=== PATIENT | male | born 1975 | race Caucasian/White ===

== ENCOUNTER → 2016-03-27 | Outpatient (CLI) | payer BC ==
[2016-03-27 17:31] LABS: HEMATOCRIT 43.2 % (42-52); MEAN CELL VOLUME 94.3 fL (80-100); MEAN CORPUSCULAR HEMOGLOBIN 33.6 pg (25-34); MEAN CORPUSCULAR HGB CONC 35.6 g/dl (32-36); MEAN PLATELET VOLUME 10.7 fL (7.4-10.4); PLATELET COUNT 176 K/uL (130-400); RED BLOOD COUNT 4.58 M/uL (4.7-6.1); WHITE BLOOD COUNT 7.35 K/uL (4.8-10.8)
[2016-03-27 18:08] LABS: ALT/SGPT 25 U/L (12-78); AST/SGOT 18 U/L (15-37); BLOOD UREA NITROGEN 22 mg/dl (7-18); BUN/CREATININE RATIO 18.6 (10-20); CARBON DIOXIDE 32 mmol/L (21-32); CHLORIDE 101 mmol/L (98-107); GLUCOSE 77 mg/dl (70-99); POTASSIUM 3.8 mmol/L (3.5-5.1); SODIUM 142 mmol/L (136-145)
[2016-03-27 18:13] LABS: ALB/GLOB RATIO 1.1 (0.9-2); ALKALINE PHOSPHATASE 61 U/L (45-117); CHOLESTEROL 177 mg/dl (0-200); CHOLESTEROL/HDL RATIO 3.7; HDL CHOLESTEROL 48 mg/dl; LDL CHOLESTEROL CALCULATED 106 mg/dl; PROSTATE SPECIFIC ANTIGEN 0.919 ng/ml (0.000-4.000); TRIGLYCERIDES 116 mg/dl (0-150); VERY LOW DENSITY LIPOPROT CALC 23 mg/dl
[2016-03-28 06:27] LABS: ESTIMATED AVERAGE GLUCOSE 94 mg/dl; HA1C FLAG Normal (Normal)
== END | disposition home or self-care (01) ==
LOC: C.LAB1850 16:44
PROVIDERS: ATTEND Internal Medicine
DX: Z12.5 Encounter for screening for malignant neoplasm of prostate (principal); E78.5 Hyperlipidemia, unspecified; R73.01 Impaired fasting glucose; E55.9 Vitamin D deficiency, unspecified

== ENCOUNTER 2017-07-10 19:24 | Emergency (ER) | payer BC, OTHER ==
[~2017-07-10] VITALS: Ht 180.3 cm; Wt 78.4 kg
[2017-07-10 19:33] VITALS: TEMP 38.1; Ht 180.3 cm; Wt 78.4 kg
[2017-07-10] MEDS ORDERED: SODIUM CHLORIDE 0.9% 1000ML 2,000 ML IV STA (19:42)
[2017-07-10] MEDS ORDERED: ONDANSETRON INJ 2 MG/ML 2 ML VIAL IV STA (19:42)
[2017-07-10] MEDS ORDERED: KETOROLAC TROMETHAMINE 30 MG/ML VIAL IV STA (19:42)
[2017-07-10] MEDS ORDERED: ACETAMINOPHEN 500 MG TAB PO STA (19:42)
--- NOTE | 2017-07-10 19:50 | EMERGENCY ROOM VISIT NOTE ---
History Report prepared by Itz: Nydia Karimi Under the Supervision of: Dr. Dimitrios Lemus M.D. First contact with patient: 19:37 Chief Complaint: FLU LIKE SX Stated Complaint: NAUSEA,VOMITING,FEVER,ACHES,HEADACHE History of Present Illness The patient is a 41 year old male who presents to the Emergency Room with complaints of constant nausea beginning this morning. The patient states he vomited 6 times today and has been unable to keep any food down. He had a normal bowel movement this morning. The patient reports a fever, body aches, and a headache. He denies any sore throat or diarrhea. He notes a recent sick contact with someone who had the flu. The patient reports eating left over chicken last night which tasted normal. The patient states he felt normal yesterday. Source of History: patient Onset: this morning Position: other (generalized) Quality: other (nausea) Timing: constant Associated Symptoms: + fevers, + headache, + nausea, + vomiting, No sorethroat, No diarrhea Review of Systems See HPI for pertinent positives & negatives. A total of 10 systems reviewed and were otherwise negative. Past Medical & Surgical Medical Problems: (1) Palatal myoclonus Surgical Problems: (1) History of tonsillectomy Family History Cancer FH: heart disease FH: hypertension Social History Smoking Status: Never Smoker Smokeless Tobacco Use: No Alcohol Use: occasionally Marital Status: Housing Status: lives with significant other Occupation Status: employed Current/Historical Medications Scheduled Doxycycline (Monohydrate) (Doxycycline), 100 MG PO BID Ondasetron Odt (Zofran Odt), 4-8 MG SL Q6H Scheduled PRN Clonazepam (Klonopin), 0.5-1 MG PO BID PRN for Anxiety Methocarbamol (Robaxin), 500 MG PO BID PRN for Muscle Spasms Allergies Uncoded Allergies: DENIES (Allergy, Unknown, 04/02/02) N (Allergy, Unknown, 04/02/02) NKDA (Allergy, Unknown, 04/02/02) Physical Exam Vital Signs Date Time Temp Pulse Resp B/P (MAP) Pulse Ox O2 Delivery O2 Flow Rate FiO2 07/10/17 21:15 70 18 136/70 99 Room Air 07/10/17 19:33 38.1 99 19 124/80 99 Room Air Physical Exam GENERAL: Patient is in no acute distress. HEENT: No acute trauma, normocephalic atraumatic, mucous membranes moist, no nasal congestion, no scleral icterus. NECK: No stridor, no adenopathy, no meningismus, trachea is midline. LUNGS: Clear to auscultation bilaterally, no wheeze, no rhonchi, breath sounds equal. HEART: Without murmurs gallops or rubs, regular rate and rhythm. ABDOMEN: Midly diffusely tender throughout. Soft, bowel sounds positive, no hernias, no peritonitis. EXTREMITIES: No cyanosis or edema, full range of motion of all the joints without pain or difficulty, no signs for acute trauma. NEUROLOGIC: Oriented x 3, no acute motor or sensory deficits, no focal weakness. SKIN: No rash, no jaundice, no diaphoresis. Medical Decision & Procedures ER Provider Diagnostic Interpretation: Radiology results as stated below per my review and radiologist interpretation: PA CHEST WITH ABDOMINAL SERIES CLINICAL HISTORY: Vomiting. FINDINGS: A PA chest radiograph is obtained. No prior studies are available for comparison at the time of dictation. The cardiomediastinal silhouette is unremarkable. The lungs and pleural spaces are clear. No pneumothorax is seen. The bony thorax is grossly intact. There is mild curvature of the upper thoracic spine. Supine and erect abdominal radiographs are correlated with abdominal ultrasound dated 08/10/2011. There is a nonobstructed abdominal bowel gas pattern. No evidence of intraperitoneal free air is seen. There are no abnormal abdominal calcifications. Numerous phleboliths are seen in the pelvis. The lumbosacral spine and bony pelvis appear intact. IMPRESSION: 1. No active disease in the chest. 2. Nonobstructed abdominal bowel gas pattern. Electronically signed by: Dimitrios Perez M.D. Laboratory Results 07/10/17 19:58 Red Blood Count 5.39, Mean Corpuscular Volume 93.3, Mean Corpuscular Hemoglobin 33.4, Mean Corpuscular Hemoglobin Concent 35.8, Mean Platelet Volume 10.4, Neutrophils (%) (Auto) 90.7, Lymphocytes (%) (Auto) 4.4, Monocytes (%) (Auto) 4.4, Eosinophils (%) (Auto) 0.3, Basophils (%) (Auto) 0.1, Neutrophils # (Auto) 7.04, Lymphocytes # (Auto) 0.34, Monocytes # (Auto) 0.34, Eosinophils # (Auto) 0.02, Basophils # (Auto) 0.01 07/10/17 19:58 Test 07/10/17 19:50 07/10/17 19:58 Urine Color DK YELLOW Urine Appearance CLEAR (CLEAR) Urine pH 5.5 (4.5-7.5) Urine Specific [place] 1.031 (1.000-1.030) Urine Protein TRACE (NEG) Urine Glucose (UA) NEG (NEG) Urine Ketones 3+ (NEG) Urine Occult Blood NEG (NEG) Urine Nitrite NEG (NEG) Urine Bilirubin NEG (NEG) Urine Urobilinogen NEG (NEG) Urine Leukocyte Esterase NEG (NEG) Urine WBC (Auto) 1-5 /hpf (0-5) Urine RBC (Auto) 0-4 /hpf (0-4) Urine Hyaline Casts (Auto) 1-5 /lpf (0-5) Urine Epithelial Cells (Auto) 5-10 /lpf (0-5) Urine Bacteria (Auto) NEG (NEG) White Blood Count 7.76 K/uL (4.8-10.8) Red Blood Count 5.39 M/uL (4.7-6.1) Hemoglobin 18.0 g/dL (14.0-18.0) Hematocrit 50.3 % (42-52) Mean Corpuscular Volume 93.3 fL (80-100) Mean Corpuscular Hemoglobin 33.4 pg (25-34) Mean Corpuscular Hemoglobin Concent 35.8 g/dl (32-36) Platelet Count 144 K/uL (130-400) Mean Platelet Volume 10.4 fL (7.4-10.4) Neutrophils (%) (Auto) 90.7 % Lymphocytes (%) (Auto) 4.4 % Monocytes (%) (Auto) 4.4 % Eosinophils (%) (Auto) 0.3 % Basophils (%) (Auto) 0.1 % Neutrophils # (Auto) 7.04 K/uL (1.4-6.5) Lymphocytes # (Auto) 0.34 K/uL (1.2-3.4) Monocytes # (Auto) 0.34 K/uL (0.11-0.59) Eosinophils # (Auto) 0.02 K/uL (0-0.5) Basophils # (Auto) 0.01 K/uL (0-0.2) RDW Standard Deviation 42.4 fL (36.4-46.3) RDW Coefficient of Variation 12.5 % (11.5-14.5) Immature Granulocyte % (Auto) 0.1 % Immature Granulocyte # (Auto) 0.01 K/uL (0.00-0.02) Anion Gap 6.0 mmol/L (3-11) Est Creatinine Clear Calc Drug Dose 88.3 ml/min Estimated GFR () 89.5 Estimated GFR (Non- 77.2 BUN/Creatinine Ratio 20.5 (10-20) Calcium Level 9.2 mg/dl (8.5-10.1) Magnesium Level 1.9 mg/dl (1.8-2.4) Total Bilirubin 0.9 mg/dl (0.2-1) Aspartate Amino Transf (AST/SGOT) 22 U/L (15-37) Alanine Aminotransferase (ALT/SGPT) 30 U/L (12-78) Alkaline Phosphatase 61 U/L (45-117) Total Protein 8.2 gm/dl (6.4-8.2) Albumin 4.2 gm/dl (3.4-5.0) Globulin 4.0 gm/dl (2.5-4.0) Albumin/Globulin Ratio 1.1 (0.9-2) Lipase 74 U/L (73-393) Laboratory results reviewed by me. Medications Administered Medications (Trade) Dose Ordered Sig/Andrea Route Start Time Stop Time Status Last Admin Dose Admin Ondansetron HCl (Zofran Inj) 4 mg NOW STAT IV 07/10/17 19:42 07/10/17 19:45 DC 07/10/17 20:03 4 MG Ketorolac Tromethamine (Toradol Inj) 15 mg NOW STAT IV 07/10/17 19:42 07/10/17 19:45 DC 07/10/17 20:04 15 MG Sodium Chloride 2,000 ml @ 999 mls/hr Q2H1M STAT IV 07/10/17 19:42 07/10/17 21:42 DC 07/10/17 20:03 999 MLS/HR Ondansetron HCl (ZOFRAN ODT 4MG Home Pack) 1 homepack UD ONCE PO 07/10/17 21:30 07/10/17 21:31 DC 07/10/17 21:46 1 HOMEPACK ED Course 1937: The patient was evaluated in room A2. A complete history and physical exam was performed. 1941: Ordered Sodium Chloride 2000 ml @ 999 mls/hr IV, Acetaminophen 1000 mg PO , Toradol Inj 15 mg IV, Zofran Inj 4 mg IV. 2124: On reassessment, the patient no longer has any nausea. He also does not have any abdominal tenderness. He is feeling much better. 2129: Ordered Ondansetron HCl 1 homepack PO. 2142: Reevaluated the patient. Discussed results and discharge instructions: He verbalized understanding and agreement. The patient is ready for discharge. Medical Decision Differential diagnoses include: dehydration, electrolyte imbalance, bowel obstruction, pneumonia, UTI, biliary colic, appendicitis, pancreatitis. There is no leukocytosis or concerning anemia. No significant electrolyte abnormality, kidney failure, hepatitis or pancreatitis. Urinalysis shows evidence for dehydration, no infection. Abdominal series shows no pneumonia, free air or bowel obstruction. On exam, the patient was not toxic, there was no peritonitis. Patient received oral Tylenol, IV Toradol, IV Zofran and IV saline, he feels significantly improved. The patient likely has a viral illness. I have reexamined his abdomen and he is not tender anywhere, in particular, no soreness in the right lower quadrant. Patient will be discharged with a bland diet, Tylenol, rest and Zofran. He was encouraged to return if worsening. We discussed the possibility of early appendicitis prior to discharge. Medication Reconcilliation Current Medication List: was personally reviewed by me Blood Pressure Screening Patient's blood pressure: Elevated blood pressure Blood pressure disposition: Elevated BP felt to be situational Impression Primary Impression: Dehydration Additional Impressions: Vomiting Fever Scribe Attestation The scribe's documentation has been prepared under my direction and personally reviewed by me in its entirety. I confirm that the note above accurately reflects all work, treatment, procedures, and medical decision making performed by me. Departure Information Dispostion Home / Self-Care Prescriptions Ondasetron Odt (ZOFRAN ODT) 4 Mg Tab 4-8 MG SL Q6H for Nausea, #10 TAB Prov: Dimitrios Lemus M.D. 07/10/17 Referrals Ck Mccoy M.D. (PCP) Forms HOME CARE DOCUMENTATION FORM, IMPORTANT VISIT INFORMATION Patient Instructions My [facility] Additional Instructions fluids rest tylenol for fever and aches zofran 1-2 tab every 6 hours for nausea bland diet--crackers, soup, toast, gatorade, rice return for worsening symptoms or pain in the right lower side as appendictis is still possible as we discussed Problem Qualifiers
[2017-07-10] MEDS ORDERED: DOXY-369 PO (20:14)
[2017-07-10] MEDS ORDERED: METH500T37 PO (20:14)
[2017-07-10] MEDS ORDERED: CLON0.5T3 PO (20:14)
[2017-07-10 20:17] LABS: BASO % 0.1 %; BASO ABS # 0.01 K/uL (0-0.2); EOS % 0.3 %; EOS ABS # 0.02 K/uL (0-0.5); HEMATOCRIT 50.3 % (42-52); IG# 0.01 K/uL (0.00-0.02); LYMPH % 4.4 %; LYMPH ABS # 0.34 K/uL (1.2-3.4); MEAN CELL VOLUME 93.3 fL (80-100); MEAN CORPUSCULAR HEMOGLOBIN 33.4 pg (25-34); MEAN CORPUSCULAR HGB CONC 35.8 g/dl (32-36); MEAN PLATELET VOLUME 10.4 fL (7.4-10.4); MONO % 4.4 %; MONO ABS # 0.34 K/uL (0.11-0.59); NEUT % 90.7 %; NEUT ABS # 7.04 K/uL (1.4-6.5); PLATELET COUNT 144 K/uL (130-400); RED CELL DISTRIBUTION WIDTH CV 12.5 % (11.5-14.5); RED CELL DISTRIBUTION WIDTH SD 42.4 fL (36.4-46.3); WHITE BLOOD COUNT 7.76 K/uL (4.8-10.8)
[2017-07-10 20:36] LABS: ALBUMIN 4.2 gm/dl (3.4-5.0); CALCIUM 9.2 mg/dl (8.5-10.1); CREATININE 1.16 mg/dl (0.60-1.40); POTASSIUM 3.5 mmol/L (3.5-5.1); TOTAL PROTEIN 8.2 gm/dl (6.4-8.2)
--- NOTE | 2017-07-10 21:03 | DIAGNOSTIC IMAGING REPORT ---
PA CHEST WITH ABDOMINAL SERIES CLINICAL HISTORY: Vomiting. FINDINGS: A PA chest radiograph is obtained. No prior studies are available for comparison at the time of dictation. The cardiomediastinal silhouette is unremarkable. The lungs and pleural spaces are clear. No pneumothorax is seen. The bony thorax is grossly intact. There is mild curvature of the upper thoracic spine. Supine and erect abdominal radiographs are correlated with abdominal ultrasound dated 08/10/2011. There is a nonobstructed abdominal bowel gas pattern. No evidence of intraperitoneal free air is seen. There are no abnormal abdominal calcifications. Numerous phleboliths are seen in the pelvis. The lumbosacral spine and bony pelvis appear intact. IMPRESSION: 1. No active disease in the chest. 2. Nonobstructed abdominal bowel gas pattern. Electronically signed by: Dimitrios Perez M.D. 07/10/2017 9:01 PM Dictated Date/Time: 07/10/2017 9:00 PM
[2017-07-10] MEDS ORDERED: ONDANSETRON HOME PACK 4MG OD TAB PO ONE (21:30)
[2017-07-10] MEDS ORDERED: ONDA4TAB10 SL (21:32)
[2017-07-10 22:02] VITALS: BP 120/67; PULSE 74; O2SAT 98
== END 2017-07-10 22:03 | disposition home or self-care (01) ==
LOC: C.EDB 19:25 → C.EDA 22:03
DX: E86.0 Dehydration (principal); R11.2 Nausea with vomiting, unspecified; R50.9 Fever, unspecified; R03.0 Elevated blood-pressure reading, without diagnosis of hypertension; R10.84 Generalized abdominal pain; R51 Headache